=== PATIENT | female | born 1935 | race Caucasian/White ===

== ENCOUNTER 2017-08-20 10:04 | Outpatient (CLI) | payer MEDICARE, OTHER ==
--- NOTE | 2017-08-20 12:21 | MRI ---
CERVICAL SPINE MRI NONCONTRAST: Clinical history: Cervical radiculopathy with neck pain. FINDINGS: C1-2 level reveals degenerative hypertrophy without significant central canal stenosis. C2-3: No high grade central canal stenosis. Mild narrowing of each neural foramen. C3-4: There is disc osteophyte complex with mild narrowing of the central canal and mild ventral cord effacement. There is uncinate process hypertrophy bilaterally with mild right neural foraminal narro wing. C4-5: No high grade central canal stenosis. There is disc osteophyte complex which results in minimal biforaminal narrowing. C5-6: Disc osteophyte complex with superimposed small left subarticular disc protrusion results in mi ld narrowing of the central canal and mild ventral cord effacement. There is moderate right and minim al left neural foraminal narrowing. C6-7: There is a broad based disc osteophyte with moderate central canal stenosis and ventral cord ef facement. Moderate right and moderate to severe left neural foraminal stenosis present. C7-T1: There is no high grade central canal or neural foraminal stenosis. There is mild intramedullary T2 hyperintensity of the cervical spinal cord from the C4 through C6 lev el. This could represent a mild degree of compressive myelomalacia. No obvious cord expansion to germaine monet acute edema evident. No acute marrow edema. IMPRESSION: 1. Multilevel cervical spine degenerative change with multilevel areas of central canal narrowing and cord effacement. 2. There is mild intramedullary T2 hyperintensity of the mid to lower cervical spinal cord which may be on the basis of compressive myelomalacia. Correlate for evidence of myelopathic symptoms. POS: CHANEL
--- NOTE | 2017-08-20 12:37 | RAD ---
CERVICAL SPINE LATERAL NEUTRAL AND FLEXION AND EXTENSION RADIOGRAPHS: 08/20/2017 HISTORY: Neck pain radiating into the lumbar area. Cervical radiculopathy. FINDINGS: The standing neutral lateral radiograph demonstrates multilevel anterior osteophyte formation within the cervical spine, most prominent at C5-C6. On the neutral lateral exam, there is anterolisthesis o f C2 on C3, measuring approximately 3 mm. Upon flexion, anterolisthesis of C2 on C3 measures approxi mately 4 mm. With extension, there is no significant anterolisthesis or retrolisthesis. There is multilevel disk space narrowing within the cervical spine, most prominent at C6-C7, with ant erior and posterior osteophyte formation. There is bilateral facet hypertrophy at C6-C7. IMPRESSION: 1. Multilevel degenerative change within the cervical spine. 2. Mild anterolisthesis of C2 on C3 noted. POS: VIV
== END 2017-08-20 10:05 | disposition home or self-care (01) ==
LOC: TBSIIMAG 10:04
PROVIDERS: ATTEND Neurological Surgery
DX: M47.22 Other spondylosis with radiculopathy, cervical region (principal); M43.12 Spondylolisthesis, cervical region; M48.02 Spinal stenosis, cervical region
CPT/HCPCS: 72040; 72141